=== PATIENT | male | born 1955 | race Caucasian/White ===

== ENCOUNTER → 2018-02-11 | Outpatient (CLI) | payer MEDICARE, OTHER ==
[~2018-02-11] MED LIST: ACET-784 PO; AMLO-512 PO; APIX2.5T PO; ASPI-556 PO; ATOR40TA28 PO; BECL10.6 IH; BENZ-51 PO; BISA10S PR; CINA30 PO; DSS100 PO; FOLI0.8T22 PO; HYDR-4061 PO; IPRA3AMP24 NEB; IPRA4AER IH; LISI-660 PO; METO25 PO; NITR.4 SL; SERT50TA12 PO; SEVE0.8P6 PO; TICA90TA PO; VITAD1000 PO
== END | disposition home or self-care (01) ==
LOC: RADPV 13:11
PROVIDERS: ATTEND Internal Medicine Cardiovascular Disease
DX: J90 Pleural effusion, not elsewhere classified (principal); I51.7 Cardiomegaly; J18.9 Pneumonia, unspecified organism

== ENCOUNTER → 2018-03-08 | Outpatient (CLI) | payer MEDICARE, OTHER ==
[2018-03-08 13:06] VITALS: BP 81/53
== END | disposition home or self-care (01) ==
LOC: SRCNTR 12:58
PROVIDERS: ATTEND Internal Medicine
DX: J44.9 Chronic obstructive pulmonary disease, unspecified (principal); I95.9 Hypotension, unspecified; I13.2 Hypertensive heart and chronic kidney disease with heart failure and with stage 5 chronic kidney disease, or end stage renal disease; N18.6 End stage renal disease; I50.810 Right heart failure, unspecified; J81.1 Chronic pulmonary edema; J90 Pleural effusion, not elsewhere classified; I25.10 Atherosclerotic heart disease of native coronary artery without angina pectoris; Z95.1 Presence of aortocoronary bypass graft; Z95.5 Presence of coronary angioplasty implant and graft; Z87.891 Personal history of nicotine dependence
CPT/HCPCS: G0463